=== PATIENT | female | born 1950 | race Caucasian/White ===

== ENCOUNTER → 2016-08-08 | Outpatient (CLI) | payer OTHER ==
[~2016-08-08] MED LIST: ACYCLOVIR400 MG PO; ALPRAZOLAM PO; ASPIRIN PO; AZITHROMYCIN250 MG PO; CEFUROXIME250 M1 PO; CELEXA PO; CERTAGEN PO; CITALOPRAM HBR40 M1 PO; CITALOPRAM HBR40 MG PO; COLACE PO; DECADRON PO; DEXAMETHASONE0.75 MG PO; DIFLUCAN50 MG PO; DOXYCYCLINE HYC50 MG PO; DURAGESIC25 MCG EXT; ENOXAPARIN60 MG/0.1 SQ; ETODOLAC400 M1 PO; FAMOTIDINE PO; FLONASE 0.05% N16 G1; FLUCONAZOLE100 M1 PO; GLYCOPYRROLATE2 MG PO; HERCEPTIN; HERCEPTIN IV; K-PHOS NEUTRAL250 M1 PO; KEFLEX PO; LC-545 GM TOP; LEVOTHYROXINE75 MCG PO; LORAZEPAM1 MG PO; LORTAB 7.5-5001 TAB PO; LOVENOX80 MG/0.8 INJ; MAG-OX 400400 M1 PO; MELOXICAM15 MG PO; METAMUCIL0.52 G PO; MILK OF MAGNESIA PO; MOBIC15 MG PO; MONTELUKAST SOD10 MG PO; MULTI-DAY1 TAB PO; MULTIVITAMIN W/1 TAB PO; NASONEX17 GM; NEURONTIN100 MG PO; OMEPRAZOLE20 M1 PO; OMEPRAZOLE40 M1 PO; OMEPRAZOLE40 MG PO; OS-CAL 500500 MG PO; OSTEOPOROSIS MED; OXYCODON-ACETA1 EAC1 PO; PERCOCET PO; PERJETA420 MG/14; PERJETA420 MG/14 IV; PHENERGAN PO; PRAVACHOL PO; PREVACID PO; ROBINUL FORTE2 MG PO; SYMBICORT 16010.2 GM INH; SYNTHROID PO; TENSION HEADAC1 EACH PO; TYKERB250 MG PO; TYL325 PO; ULORIC40 MG PO; VANCOCIN HCL PO; VOLTAREN100 GM TOP; XELODA500 MG PO; ZANTAC150 M1 PO; [UNRECOGNIZED DRUG - REMARK]
== END | disposition home or self-care (01) ==
LOC: CECH 10:24
DX: Z01.89 Encounter for other specified special examinations (principal); C50.411 Malignant neoplasm of upper-outer quadrant of right female breast; C77.0 Secondary and unspecified malignant neoplasm of lymph nodes of head, face and neck; C79.51 Secondary malignant neoplasm of bone; K21.0 Gastro-esophageal reflux disease with esophagitis; I51.7 Cardiomegaly
CPT/HCPCS: 93307

== ENCOUNTER → 2017-01-17 | Outpatient (CLI) | payer OTHER ==
--- NOTE | ~2017-01-17 | MR17 ---
[facility] A Service of [facility] & [facility] RADIOLOGY TEXT RESULTS PATIENT: NIA PANIAGUA [facility] : 54 UNIT #: [id number] AGE: [address]: Lincoln Douglas MD SEX: F ORDER DR: [id number] [address] [id number] O MR#: [id number] Acc #: [id number] NAME: NIA PANIAGUA : 1950 SEX: F STUDY DATE/TIME: 01/17/2017 11:50 UNIT: [facility] ROOM: STUDY DESCRIPTION: MR Brain WWo Contrast Attending Physician: Lincoln Douglas M.D. Referring Physician: Lincoln Douglas M.D. Ordering Physician: Lincoln Douglas M.D. Primary Care Physician: Jose David Simental Jr., M.D. MRI CENTER REPORT This report is preliminary unless electronic signature is present. EXAM Brain MRI with and without contrast. HISTORY Breast cancer with metastatic disease. The patient complains of poor coordination and unsteadiness of gait. Symptoms have worsened recently. COMPARISON Examination from 07/31/2016. TECHNIQUE Multiplanar imaging of the brain was performed with and without contrast. 9 mL of MultiHance was used. FINDINGS On diffusion-weighted images, there is no evidence of abnormal or restricted diffusion to suggest a recent infarct. 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 Widespread metastatic disease is again seen. In the posterior fossa, the right inferior cerebellar mass has decreased in thickness from 11 mm to 7 mm. The larger peripheral metastatic lesion in the left cerebellar hemisphere has decreased in maximum thickness from 15 mm to 13 mm and the smaller lesion posteriorly closer to the midline has resolved almost completely. The lesion in the left cerebellar vermis is significantly smaller. It has decreased in thickness from 9 mm to 5 mm. The metastatic lesion over the left parietal convexity is also markedly improved. On the previous scan, it had measured 14 x 22 mm and it now measures 10 x 5 mm. No new or enlarging brain masses are seen. No hemorrhages are noted. IMPRESSION 1. Marked improvement in the size of multiple metastatic lesions since STS. [facility] A Service of [facility] & [facility] RADIOLOGY TEXT RESULTS PATIENT: NIA PANIAGUA [facility] : 54 UNIT #: [id number] AGE: [address]: Lincoln Douglas MD SEX: F ORDER DR: the previous examination. No new or enlarging masses are seen. 2. 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 No evidence of recent infarct. Dictated by... Nathan Kearns M.D. THIS IS AN ELECTRONICALLY VERIFIED REPORT Nathan Kearns M.D. at 01/21/2017 7:22 AM PEYTON/harshil TD: 01/19/2017 13:34 JOB #: [id number] MRI CENTER REPORT Page 1 of 1
[2017-01-17 12:41] LABS: POC - CREATININE 0.67 mg/dL (0.44-1.03); POC - GFR >60.0 mL/min (>60)
== END | disposition home or self-care (01) ==
LOC: SMRI 10:43
PROVIDERS: Radiology Radiation Oncology
DX: C79.31 Secondary malignant neoplasm of brain (principal); C50.919 Malignant neoplasm of unspecified site of unspecified female breast; G93.89 Other specified disorders of brain
CPT/HCPCS: 70553; 82565; A9581